=== PATIENT | male | born 1965 | race Caucasian/White ===

== ENCOUNTER 2017-11-05 20:11 | Emergency (ER) | payer OTHER ==
[~2017-11-05] VITALS: Ht 175.3 cm; Wt 80.8 kg
[~2017-11-05 20:11] MED LIST: ANTICRE6 PO; CNC/36 PO; FLUT50SP45 NAE; NASONEX INTNAS; OXYC-57 PO
[2017-11-05 20:14] VITALS: TEMP 36.3; Ht 175.3 cm; Wt 80.8 kg
[2017-11-05] MEDS ORDERED: MoRPHine SULFATE 4 MG/ML 1 ML CARP\\VIAL IV STA (20:34)
[2017-11-05] MEDS ORDERED: SODIUM CHLORIDE 0.9% 1000ML 1,000 ML IV STA (20:34)
[2017-11-05 21:12] LABS: BASO % 0.2 %; BASO ABS # 0.02 K/uL (0-0.2); EOS % 0.6 %; EOS ABS # 0.05 K/uL (0-0.5); HEMATOCRIT 44.5 % (42-52); HEMOGLOBIN 16.2 g/dL (14.0-18.0); IG# 0.01 K/uL (0.00-0.02); LYMPH % 12.5 %; LYMPH ABS # 1.01 K/uL (1.2-3.4); MEAN CELL VOLUME 88.8 fL (80-100); MEAN CORPUSCULAR HEMOGLOBIN 32.3 pg (25-34); MEAN CORPUSCULAR HGB CONC 36.4 g/dl (32-36); MEAN PLATELET VOLUME 8.9 fL (7.4-10.4); MONO % 5.8 %; MONO ABS # 0.47 K/uL (0.11-0.59); NEUT % 80.8 %; NEUT ABS # 6.53 K/uL (1.4-6.5); PLATELET COUNT 273 K/uL (130-400); RED CELL DISTRIBUTION WIDTH SD 42.3 fL (36.4-46.3); WHITE BLOOD COUNT 8.09 K/uL (4.8-10.8)
[2017-11-05 21:31] LABS: ALBUMIN 4.6 gm/dl (3.4-5.0); CALCIUM 8.9 mg/dl (8.5-10.1); CREATININE 1.11 mg/dl (0.60-1.40); POTASSIUM 3.7 mmol/L (3.5-5.1)
[2017-11-05 21:33] LABS: TOTAL PROTEIN 8.3 gm/dl (6.4-8.2)
--- NOTE | 2017-11-05 22:27 | EMERGENCY ROOM VISIT NOTE ---
History Report prepared by Aj: Ange Hernandez Under the Supervision of: Dr. Caden Carrera M.D. First contact with patient: 20:27 Chief Complaint: ABDOMINAL PAIN Stated Complaint: GALL STONE Nursing Triage Summary: Patient reports history of gal bladder issues and is to have gal bladder removed on wednesday. Patient reports abd pain that feels similar to past gal bladder issues. History of Present Illness The patient is a 51 year old male who presents to the Emergency Room with complaints of worsening abdominal pain starting this morning. The patient has a history of gallbladder issues. He had part of it removed 2 years ago. The surgeon was unable to remove the entire gallbladder because it was too inflamed. He is scheduled to have the rest of the gallbladder removed next week. He would like to have it removed today. He has been having flare ups of his gallbladder pain more frequently. The pain goes into his back. He has tried oxycodone to some relief. The pain worsens with eating. He had 1 slice of pizza yesterday evening at 2300. Today he had a cookie and creamy chicken soup, as well as chocolate/peanut butter. He denies any fever, cough, congestion, chest pain, or SOB. Source of History: patient Onset: this morning Position: abdomen Quality: other (gallbladder pain) Timing: worsening Modifying Factors (Worsening): eating Modifying Factors (Relieving): other (oxycodone) Associated Symptoms: + back pain, No fevers, No cough, No chest pain, No SOB Review of Systems See HPI for pertinent positives and negatives. A total of ten systems were reviewed and were otherwise negative. Past Medical & Surgical Medical Problems: (1) Cholecystitis, acute with cholelithiasis Family History Cancer Diabetes mellitus Heart disease Hypertension Kidney stones Social History Smoking Status: Never Smoker Alcohol Use: occasionally Drug Use: none Marital Status: Housing Status: lives with significant other Occupation Status: employed Current/Historical Medications Scheduled Methylphenidate Hcl (Concerta), 72 MG PO QAM Scheduled PRN Mometasone Furoate (Nasal) (Mometasone Furoate), 2 SPRAYS LETTY DIRECTED PRN for CONGESTION Allergies Coded Allergies: Penicillins (Verified Allergy, Unknown, unknown, 11/05/17) Succinylcholine (Verified Allergy, Unknown, SEE COMMENTS BELOW, 11/05/17) PT LISTS SUCCINYLCHOLINE ALLERGY DUE TO MOTHER HAS PSEUDOCHOLINESTERASE DEFICIENCY Physical Exam Vital Signs Date Time Temp Pulse Resp B/P (MAP) Pulse Ox O2 Delivery O2 Flow Rate FiO2 11/05/17 23:05 68 146/92 98 11/05/17 21:11 62 11/05/17 20:14 36.3 53 18 179/105 99 Room Air Physical Exam GENERAL: Awake, alert, well-appearing, in no distress HENT: Normocephalic, atraumatic. Oropharynx unremarkable. EYES: Normal conjunctiva. Sclera non-icteric. NECK: Supple. No nuchal rigidity. FROM. No JVD. RESPIRATORY: Clear to auscultation. CARDIAC: Regular rate, normal rhythm. Extremities warm and well perfused. Pulses equal. ABDOMEN: Soft, non-distended. No tenderness to palpation. No peritoneal signs. No rebound or guarding. No masses. RECTAL: Deferred. MUSCULOSKELETAL: Chest examination reveals no tenderness. The back is symmetrical on inspection without obvious abnormality. There is no CVA tenderness to palpation. No joint edema. LOWER EXTREMITIES: Calves are equal size bilaterally and non-tender. No edema. No discoloration. NEURO: Normal sensorium. No sensory or motor deficits noted. SKIN: No rash or jaundice noted. Medical Decision & Procedures ER Provider Diagnostic Interpretation: Radiology results as stated below per my review and radiologist interpretation: GALLBLADDER-ABD LIMITED HISTORY: 51 years-old Male RUQ pain, known gallstone acute right upper quadrant abdominal pain with history of cholelithiasis COMPARISON: Right upper quadrant ultrasound 06/22/2016 TECHNIQUE: Multiple real-time sonographic images of the abdominal right upper quadrant were obtained assessing grayscale appearance and color flow FINDINGS: Pancreas is obscured by bowel gas. Liver appears unremarkable without intrahepatic biliary ductal dilation or focal hepatic mass lesions identified. Gallstones are seen within the gallbladder neck. Gallbladder wall is mildly thickened, 5 mm. No pericholecystic fluid collections. Sonographic Garner sign was not reported. Mild dilation of the common bile duct, 1.1 cm. No definite stone of the common bile duct is identified. Right kidney demonstrates no hydronephrosis. IMPRESSION: 1. Cholelithiasis and mild gallbladder wall thickening without pericholecystic fluid or reported right upper quadrant tenderness. Correlate clinically to exclude developing acute cholecystitis. 2. Dilated common bile duct, 1.1 cm. 3. Pancreas is obscured by bowel gas. The above report was generated using voice recognition software. It may contain grammatical, syntax or spelling errors. Electronically signed by: Manan Billy M.D. 11/05/2017 10:24 PM Dictated Date/Time: 11/05/2017 10:22 PM Laboratory Results 11/05/17 20:54 Red Blood Count 5.01, Mean Corpuscular Volume 88.8, Mean Corpuscular Hemoglobin 32.3, Mean Corpuscular Hemoglobin Concent 36.4, Mean Platelet Volume 8.9, Neutrophils (%) (Auto) 80.8, Lymphocytes (%) (Auto) 12.5, Monocytes (%) (Auto) 5.8, Eosinophils (%) (Auto) 0.6, Basophils (%) (Auto) 0.2, Neutrophils # (Auto) 6.53, Lymphocytes # (Auto) 1.01, Monocytes # (Auto) 0.47, Eosinophils # (Auto) 0.05, Basophils # (Auto) 0.02 11/05/17 20:54 Test 11/05/17 20:54 White Blood Count 8.09 K/uL (4.8-10.8) Red Blood Count 5.01 M/uL (4.7-6.1) Hemoglobin 16.2 g/dL (14.0-18.0) Hematocrit 44.5 % (42-52) Mean Corpuscular Volume 88.8 fL (80-100) Mean Corpuscular Hemoglobin 32.3 pg (25-34) Mean Corpuscular Hemoglobin Concent 36.4 g/dl (32-36) Platelet Count 273 K/uL (130-400) Mean Platelet Volume 8.9 fL (7.4-10.4) Neutrophils (%) (Auto) 80.8 % Lymphocytes (%) (Auto) 12.5 % Monocytes (%) (Auto) 5.8 % Eosinophils (%) (Auto) 0.6 % Basophils (%) (Auto) 0.2 % Neutrophils # (Auto) 6.53 K/uL (1.4-6.5) Lymphocytes # (Auto) 1.01 K/uL (1.2-3.4) Monocytes # (Auto) 0.47 K/uL (0.11-0.59) Eosinophils # (Auto) 0.05 K/uL (0-0.5) Basophils # (Auto) 0.02 K/uL (0-0.2) RDW Standard Deviation 42.3 fL (36.4-46.3) RDW Coefficient of Variation 13.0 % (11.5-14.5) Immature Granulocyte % (Auto) 0.1 % Immature Granulocyte # (Auto) 0.01 K/uL (0.00-0.02) Anion Gap 4.0 mmol/L (3-11) Est Creatinine Clear Calc Drug Dose 78.8 ml/min Estimated GFR () 88.6 Estimated GFR (Non- 76.5 BUN/Creatinine Ratio 14.8 (10-20) Calcium Level 8.9 mg/dl (8.5-10.1) Total Bilirubin 0.9 mg/dl (0.2-1) Direct Bilirubin 0.2 mg/dl (0-0.2) Aspartate Amino Transf (AST/SGOT) 33 U/L (15-37) Alanine Aminotransferase (ALT/SGPT) 55 U/L (12-78) Alkaline Phosphatase 74 U/L (45-117) Total Protein 8.3 gm/dl (6.4-8.2) Albumin 4.6 gm/dl (3.4-5.0) Lipase 87 U/L (73-393) Laboratory results reviewed by me Medications Administered Medications (Trade) Dose Ordered Sig/Ania Route Start Time Stop Time Status Last Admin Dose Admin Sodium Chloride 1,000 ml @ 999 mls/hr Q1H1M STAT IV 11/05/17 20:34 11/05/17 21:34 DC 11/05/17 20:34 999 MLS/HR Morphine Sulfate (MoRPHine SULFATE INJ) 4 mg NOW STAT IV 11/05/17 20:34 11/05/17 20:44 DC 11/05/17 21:05 4 MG ED Course 2032: The patient was evaluated in room A4B. A complete history and physical exam was performed. Medical Decision I reviewed the patient's past medical history, medications, and the nursing notes as described above. Differential diagnosis: Etiologies such as appendicitis, diverticulitis, PUD, biliary pathology, UTI, pancreatitis, obstruction, mesenteric ischemia, aortic pathology, infections, inflammatory bowel disease, renal colic, as well as others were entertained. The patient is a 51-year-old woman with past medical history of known gallstone who presents to the emergency department with worsening right upper quadrant/ back pain in the setting of dietary indiscretions per HPI. On arrival the patient is well-appearing in NAD, AFVSS. Abd is benign without ttp and Negative garner's sign. WBC and LFTS wnl without evidence of biliary obstruction. RUQ US with mild nonspecific wall thickening and otherwise negative for obstruction or cholecystitis. Patient feeling improved after IVF and morphine. I explained the patient that his pain should continue to improve given that his exacerbation was likely due to her dietary indiscretion. Moreover, given his w/ u was reassuring without objective evidence to suggest need for emergent surgery , it is appropriate to monitor his symptoms with strict diet and to return if worse. Already has surgery scheduled with , Dr. Rosario, on Wednesday. Patient advised to attempt Pepcid to see if sx improve, if possible superimposed gastritis component. Findings and plan for follow-up reviewed with patient. Patient agreeable and d/c'd per discharge instructions. Medication Reconcilliation Current Medication List: was personally reviewed by me Blood Pressure Screening Patient's blood pressure: Elevated blood pressure Blood pressure disposition: Elevated BP felt to be situational Impression Primary Impression: Cholelithiasis Additional Impression: Biliary colic Scribe Attestation The scribe's documentation has been prepared under my direction and personally reviewed by me in its entirety. I confirm that the note above accurately reflects all work, treatment, procedures, and medical decision making performed by me. Departure Information Dispostion Home / Self-Care Referrals Yuriy Peña M.D.(STEPHIE) (PCP) Patient Instructions ED Gallstone W Biliary Colic, My [facility] Additional Instructions Please follow up with your surgeon, Dr. Rosario, as scheduled on Wednesday for your surgery. Your symptoms are likely due to your known gallstone in the setting of your recent fat intake. Otherwise, your exam, lab results, and ultrasound did not show signs of an emergent condition at this time. Refrain from fatty foods. Drink plenty of fluids to ensure hydration. Return to the emergency department for worsening symptoms as described in the accompanying instructions. Problem Qualifiers
[2017-11-05] MEDS ORDERED: MOME6000 NAE (22:58)
[2017-11-05 23:05] VITALS: BP 146/92; PULSE 68; O2SAT 98
== END 2017-11-05 23:06 | disposition home or self-care (01) ==
LOC: C.EDA 21:04
DX: K80.20 Calculus of gallbladder without cholecystitis without obstruction (principal); K80.50 Calculus of bile duct without cholangitis or cholecystitis without obstruction; R10.11 Right upper quadrant pain

== ENCOUNTER 2017-11-10 07:38 | Day surgery (SDC) | payer OTHER ==
[2017-08-11 10:40] VITALS: BMI 27.0
[2017-11-05 10:15] VITALS: BMI 27.0
[~2017-11-10] VITALS: Ht 175.3 cm; Wt 84.1 kg
[~2017-11-10 07:38] MED LIST changes: -ANTICRE6 PO; +CLINDAMYCIN 600 MG/54 ML D5W IV SCH; -FLUT50SP45 NAE; +LACTATED RINGER'S 1000ML 1,000 ML IV SCH; +MOME6000 NAE; -NASONEX INTNAS; -OXYC-57 PO
[2017-11-10 08:05] VITALS: BP 141/86; PULSE 59; TEMP 36.5; O2SAT 96; Ht 175.3 cm; Wt 84.1 kg
[2017-11-10] MEDS ORDERED: FENTANYL CITRATE INJ 50 MCG/1 ML 2 ML VIAL ONE ×2 (09:34→12:29)
[2017-11-10] MEDS ORDERED: MIDAZOLAM HCL 1 MG/ML 2ML VIAL ONE (09:35)
[2017-11-10] MEDS ORDERED: LIDOCAINE HCL 2% 2 ML VIAL (20MG/ML) ONE (09:38)
[2017-11-10] MEDS ORDERED: ROCURONIUM BROMIDE 10 MG/ML 5 ML VIAL ONE (09:38)
[2017-11-10] MEDS ORDERED: PROPOFOL IV EMULSION 10 MG/ML 20 ML VIAL ONE (09:39)
--- NOTE | 2017-11-10 10:11 | History & Physical Bridge Note ---
H&P Re-Evaluation Bridge Note: I have examined the patient, reviewed the History & Physical and in the interval since the performance of the History & Physical I have noted the following changes of clinical significance: No changes noted
[2017-11-10] MEDS ORDERED: LIDOCAINE HCL 1% 20 ML VIAL ONE (11:02)
[2017-11-10] MEDS ORDERED: BACITRACIN OINT 15 GM TUBE ONE (11:03)
[2017-11-10] MEDS ORDERED: BUPIVACAINE 0.5 % 5 MG/1 ML MPF 30ML VIAL ONE (11:03)
[2017-11-10] MEDS ORDERED: ONDANSETRON INJ 2 MG/ML 2 ML VIAL ONE ×2 (11:46→12:09)
[2017-11-10] MEDS ORDERED: EpHEDrine SULFATE 50MG/5ML SYR ONE (12:09)
[2017-11-10] MEDS ORDERED: ATROPINE SULFATE 0.1 MG/ML 5ML SYR IV PRN (12:15)
[2017-11-10] MEDS ORDERED: KETOROLAC TROMETHAMINE 30 MG/ML VIAL IV. PRN (12:15)
[2017-11-10] MEDS ORDERED: ONDANSETRON INJ 2 MG/ML 2 ML VIAL IV PRN ×3 (12:15→14:15)
--- NOTE | 2017-11-10 13:01 | [facility] Post Operative Brief Note ---
Immediate Operative Summary Operative Date November 10, 2017. Pre-Operative Diagnosis Cholecystitis with Gallstones Post-Operative Diagnosis Cholecystitis with Gallstones Procedure(s) Performed Laparoscopic Cholecystectomy Surgeon Dr Rosario Steward/[employer] Surgeon(s) Romelia Green PA-C Estimated Blood Loss 20CC Findings Consistent with Post-Op Diagnosis Fluids (cc crystalloids) 1200ml Specimens A: Gallbladder and contents Drains YAO x1 Anesthesia Type General Complication(s) none Disposition Accompanied Pt To Recover: yes Disposition: Recovery Room / PACU
[2017-11-10] MEDS ORDERED: KETOROLAC TROMETHAMINE 30 MG/ML VIAL ONE (13:06)
[2017-11-10] MEDS: FENTANYL CITRATE INJ 50 MCG/1 ML 2 ML VIAL IV PRN ×2 (13:39→13:44)
[2017-11-10] MEDS ORDERED: OXYC-57 PO (13:50)
--- NOTE | 2017-11-10 13:54 | Discharge Instructions ---
Discharge Instructions Date of Service November 10, 2017. Admission Reason for Admission: Right Upper Quadrant Abdominal Pain Discharge Discharge Diagnosis / Problem: same Discharge Goals Goal(s): Decrease discomfort, Improve function Activity Recommendations Activity Limitations: per Instructions/Follow-up section No heavy lifting over 20 pounds for 2-3 weeks No strenuous activity until cleared by surgeon No submerging incisions underwater for 2 weeks (no bathing, swimming, or hot tubs) No driving while taking narcotic pain medication or until you are pain free . Instructions / Follow-Up Instructions / Follow-Up You may shower in 4 days, sponge bath and wash hair in meantime. Try to keep dressings clean and dry. After 4 days, you may remove outer dressings and shower. Leave Steri-Strips on incisions for 7 days and then remove. They may fall off on their own that is okay. Walking and light activity is encouraged. He will be given prescription for narcotic pain medication. Please take as directed. This medication may cause drowsiness and constipation. To combat constipation: -Drink plenty of fluids -May take [id number] stool softener such as Colace daily -May take gentle laxative and prune juice if needed You will be sent home with surgical drain. Please record how much is coming out of the drain periodically throughout the day. Call surgical office at [phone] to make an appointment this Wednesday morning around 9:00 to evaluate drain and possible removal. He should then have a follow-up in the surgical office in about 1-2 weeks. Please again called the office number above to make this follow-up appointment or this can be made Wednesday when you are seen for your drain. Current Hospital Diet Patient's current hospital diet: Discharge Diet Recommended Diet: Regular Diet Procedures Procedures Performed: Laparoscopic Cholecystectomy Pending Studies Studies pending at discharge: yes List of pending studies: Gallbladder pathology. Will be reviewed at follow up visit Medical Emergencies . Who to Call and When: Medical Emergencies: If at any time you feel your situation is an emergency, please call 911 immediately. . Non-Emergent Contact Non-Emergency issues call your: Primary Care Provider, Surgeon Call Non-Emergent contact if: you have a fever, temperature is above 101, your pain is not controlled, your pain is worsening, your pain is unusual for you, wound has increased drainage, wound has increased redness, wound has increased pain . "Provider Documentation" section prepared by Romelia Green. . [place] Drug Monitoring [place] Search Results: patient reviewed within database, no issues identified
[2017-11-10] MEDS ORDERED: ACETAMINOPHEN 325 MG TAB PO PRN (14:00)
[2017-11-10] MEDS ORDERED: MoRPHine SULFATE 4 MG/ML 1 ML CARP\\VIAL IV PRN ×2 (14:00→14:15)
[2017-11-10] MEDS ORDERED: MoRPHine SULFATE 2 MG/ML CARP IV PRN ×2 (14:00)
[2017-11-10] MEDS ORDERED: OXYCODONE/ACETAMINOPHEN 5-325 TAB PO PRN ×3 (14:00→14:15)
[2017-11-10] MEDS ORDERED: SODIUM CHLORIDE 0.9% 1000ML 1,000 ML IV SCH (14:01)
[2017-11-10 14:12] VITALS: BP 133/76; PULSE 66; TEMP 36.5; O2SAT 100
[2017-11-10] MEDS ORDERED: IBUPROFEN 600 MG TAB PO PRN (14:15)
[2017-11-10 14:45] VITALS: BP 148/84; PULSE 62; TEMP 36.4; O2SAT 100
[2017-11-10 15:15] VITALS: BP 135/81; PULSE 57; TEMP 36.5; O2SAT 96
--- NOTE | 2017-11-10 16:00 | Anesthesiology Progress Note ---
Anesthesia Post Op Note Date & Time November 10, 2017 at 16:00 Vital Signs Pain Intensity: 2 Vital Signs Past 12 Hours Date Time Temp Pulse Resp B/P (MAP) Pulse Ox O2 Delivery O2 Flow Rate FiO2 11/10/17 14:00 36.3 51 20 112/78 97 Room Air 11/10/17 13:50 66 16 119/73 100 Room Air 11/10/17 13:40 48 14 139/89 100 Oxymask 10 11/10/17 13:30 51 14 131/86 100 Oxymask 10 11/10/17 13:21 36.3 67 14 141/94 100 Oxymask 10 11/10/17 08:05 36.5 59 16 141/86 (104) 96 Room Air Notes Mental Status: alert / awake / arousable, participated in evaluation Pt Amnestic to Procedure: Yes Nausea / Vomiting: adequately controlled Pain: adequately controlled Airway Patency, RR, SpO2: stable & adequate BP & HR: stable & adequate Hydration State: stable & adequate Anesthetic Complications: no major complications apparent
--- NOTE | 2017-11-11 02:08 | OPERATIVE REPORT ---
DATE OF OPERATION: 11/10/2017 PREOPERATIVE DIAGNOSIS: Post status laparoscopic subtotal cholecystectomy, cholecystitis, cholelithiasis. POSTOPERATIVE DIAGNOSIS: Post status laparoscopic subtotal cholecystectomy, cholecystitis, cholelithiasis. OPERATION: Laparoscopic cholecystectomy. SURGEON: Henrry Rosario MD [employer]ICE OFFICER: Romelia Green PA-C ANESTHESIA: General. ESTIMATED BLOOD LOSS: About 20 mL FINDINGS: Chronic cholecystitis with cholelithiasis. COMPLICATIONS: None. INDICATIONS FOR THE PROCEDURE: This is a 52-year-old gentleman who had laparoscopic subtotal cholecystectomy for acute cholecystitis 5 months ago; however, after the procedure, the patient doing fine until the last couple weeks the patient developed right upper quadrant pain. The patient had ultrasound which showed remaining gallstone in the gallbladder and cholecystitis. The patient will be required to do laparoscopic cholecystectomy, possible open, possible cholangiogram. I did talk to the patient about the benefit and risk, alternate procedure. I indicated the risks may include but not limited such as bleeding, infection, injury to common bile duct, injury to bowel, may need ERCP. The patient understands. He signed informed consent and I answered all questions. DETAILS OF PROCEDURE: We brought the patient to the OR, put the patient on the supine position. The patient received SCD on bilateral legs to prevent DVT. Also, the patient received 600 mg of clindamycin IV for prophylactic antibiotic. The patient received general anesthesia without difficulty. The abdomen was properly draped in routine sterile fashion. After time out, injected the local anesthesia just above umbilical then used the same all the incision just above umbilical, opened fascia, opened peritoneum under direct vision put a Annamarie trocar in, connected CO2 to create pneumoperitoneum. Flow rate is 6 L/min. Pressure not more than 14 mmHg. Once we got a nice pneumoperitoneum, we put the camera in, looked around the abdomen, showed normal finding on the stomach, small bowel, large bowel, liver; however, there are some chronic inflammation around the gallbladder, and at this moment, we put another two 5 mm trocar on the right upper quadrant and put another 11 trocar on the epigastrium. Once all trocars in, we used a grasper to hold the liver up and remainder of gallbladder is chronic cholecystitis. I used the Bovie to take it down around the gallbladder and cystic duct was identified, mobilized, and also there are large stone near the cystic duct neck. Removed the stone, go back to the gallbladder cavity. Once we identified the cystic duct and put two 10 mm metal clips on the proximal cystic duct, one on the distal cystic duct. I used a scissor to transection the cystic duct. Rechecked and no active bleeding, no leak and the cystic artery was identified and mobilized. I put two 5 mm metal clips on the proximal cystic arterial around the distal cystic artery, used a scissor to transection the cystic artery. I used the Bovie to take down gallbladder without difficulty; however, after the procedure there was some oozing on the liver side. We decided to put a YAO drainage 10 mm. Then we rechecked and no active bleeding. No bile leak from the liver bed. Then we removed out gallbladder through the catch bag, then we reinserted Annamarie trocar and connected CO2 to create pneumoperitoneum, again checked abdomen, liver bed, no bile leak, and no active bleeding from the liver bed. Then we removed all trocar under direct vision. No active bleeding from trocar site. Pneumoperitoneum was released and we closed the umbilical incision, fascial layer, used #1 Vicryl [id number] x2, closed subcutaneous layer by using 2-0 Vicryl, closed skin by using 4-0 Vicryl, closed the epigastrium incision area. I used a #1 Vicryl, closed the fascia in [id number] x2, closed subcutaneous layer by using 2-0 Vicryl, closed skin by using 4-0 Vicryl. I closed another two 5 mm trocar site skin only by using 4-0 Vicryl. We put the dressing on. The patient tolerated the procedure well. All the instrument, needle, and sponge count were correct x2 at the end of the case. The patient transferred to recovery room in stable condition. The specimen sent to pathologist. I attest to the content of the Intraoperative Record and any orders documented therein. Any exceptions are noted below. SAGE
[2017-11-11] MEDS ORDERED: CLINDAMYCIN 600 MG/54 ML D5W IV ONE (06:00)
== END 2017-11-10 15:45 | disposition home or self-care (01) ==
LOC: C.ACU 07:38
PROVIDERS: ATTEND Surgery
DX: K80.10 Calculus of gallbladder with chronic cholecystitis without obstruction (principal); F41.9 Anxiety disorder, unspecified; F98.8 Other specified behavioral and emotional disorders with onset usually occurring in childhood and adolescence; Z88.0 Allergy status to penicillin

== ENCOUNTER 2024-11-26 18:49 | Inpatient (IN) ==
--- NOTE | 2024-11-26 19:06 | Emergency Department Note ---
Impression & Plan Hypertensive urgency ADMIT ED Provider Note HPI: History obtained from patient. The patient is a 59-year-old gentleman who presents the ED today with multiple issues. Patient states throughout the day today he has been feeling somewhat lightheaded. Patient states when he bends over he feels as if he is going to "pass out". Patient states he feels like his heart has been "pounding". Patient denies any chest pain or shortness of breath, he denies any headache but states he does feel a head "pressure". On arrival here to the ED the patient is hypertensive at 197/121, his vital signs are otherwise within normal limits. Patient does not have any focal deficits on arrival. ROS: - Per HPI Differential Diagnosis: Hypertensive emergency, hypertensive urgency, migraine headache, arrhythmia, intracranial hemorrhage to include subarachnoid hemorrhage, stroke, amongst other potential pathologies. *Outpatient medications and allergy history reviewed. PE: General: Alert HEENT: Normocephalic, trachea midline Eyes: Extraocular eye movement is intact, no scleral erythema Pulmonary: Clear to auscultation bilaterally, no wheezing Cardio: Regular rate and rhythm GI: Abdomen is soft to palpation : No suprapubic tenderness MSK: No evidence of trauma or malformation of the extremities, no edema Skin: No evidence of rash Neuro: Alert, no focal deficits, symmetrical facial movements are appreciated Psychiatric: Cooperative INDEPENDENT INTERPRETATIONS: production troubleshooter: (As interpreted by myself): - An order was placed for continuous cardiac monitoring - Patient was noted to be in sinus rhythm with a rate of 100 EKG: (As interpreted by myself): Rate: 94 Rhythm: Normal sinus rhythm Intervals: Within normal limits ST changes: No ST elevation Time: 1902 Chest x-ray: (As interpreted by myself): No acute disease Interventions provided in ED: - IV labetalol, IV hydralazine, IV morphine, IV Zofran Medical Decision Making: IV was established and lab work obtained, patient was placed on education specialist. Lab work shows no leukocytosis, hemoglobin is normal, platelet count is normal, CMP does not show any evidence of any critical findings. AST is mildly elevated as is ALT. Troponin is negative x 1. EKG per my interpretation shows normal sinus rhythm without any acute ischemic changes or arrhythmia. TSH is within normal limits, magnesium is also within normal limits. CT imaging of the head was obtained given the patient's complaint of head "pressure". This does not show any evidence of any acute intracranial abnormality. Despite IV labetalol and IV hydralazine on my reassessment the patient's pressure remains elevated and he states he still has pressure in his head. At this point I do think the patient should be admitted to the hospital for hypertensive urgency with headache. Patient was ordered IV morphine and IV Zofran, this did improve his headache. I did order an nicardipine drip and I did discuss the patient's presentation with the on-call hospitalist, Dr. Blair. She did accept the patient for further management and inpatient care. Consultants/Discussions held with other healthcare providers: - Hospitalist, Dr. Blair Disposition discussion held by myself with: - Patient Diagnosis: 1. Hypertensive urgency, acute 2. Headache, acute 3. Presyncope, transient 4. Transaminitis, acute, mild, nonspecific Disposition: Admission Aj Haji DO Emergency Medicine Past Med/Surg History Problem List (Updated 11/26/24 @ 23:15 by Aj Haji DO) BPH (benign prostatic hyperplasia) Transaminitis Hypokalemia Hypertensive urgency (Acute) Cholecystitis, acute with cholelithiasis Social History Smoking Status: Never smoker Preferred Language: Cymro Feels Safe at Home: Yes Allergies Allergies Allergy/AdvReac Type Severity Reaction Status Date / Time Penicillins Allergy Unknown unknown Verified 11/10/17 07:54 succinylcholine Allergy Unknown SEE Verified 11/10/17 07:54 COMMENTS BELOW Home Meds Home Medications Medication Instructions Recorded Confirmed cetirizine 10 mg tablet (Zyrtec) 10 mg PO DAILY PRN Allergy Symptoms 11/26/24 11/26/24 finasteride 5 mg tablet 5 mg PO DAILY 11/26/24 11/26/24 phentermine 37.5 mg tablet 37.5 mg PO DAILY 11/26/24 11/26/24 tamsulosin 0.4 mg capsule 0.4 mg PO BID 11/26/24 11/26/24 Results & Data (ED) Vital Signs Vital Signs - 24 hr 11/26/24 18:57 11/26/24 19:02 11/26/24 19:10 Temperature 36.6 C Temperature Source Temporal Artery Scan Pulse Rate 101 H 94 H Pulse Rate [Apical] Pulse Rhythm Regular Pulse Strength Normal Respiratory Rate 17 Respiratory Effort / Characteristics Non-Labored Spontaneous Respiratory Depth Normal Blood Pressure 197/121 H Blood Pressure [Right Arm] Blood Pressure Mean 146 Blood Pressure Mean [Right Arm] Blood Pressure Position Sitting Blood Pressure Position [Right Arm] Pulse Oximetry 96 Oxygen Delivery Method Room Air Room Air Sepsis Recent Fever Within 48 Hours No Sepsis New/Unexplained Change in Mental Status N/A Sepsis Action Taken by Nursing No Action Required 11/26/24 19:10 11/26/24 19:14 11/26/24 19:29 Temperature Temperature Source Pulse Rate 88 79 Pulse Rate [Apical] 79 Pulse Rhythm Pulse Strength Respiratory Rate 16 Respiratory Effort / Characteristics Non-Labored Spontaneous Respiratory Depth Blood Pressure 220/146 H 197/126 H Blood Pressure [Right Arm] 220/146 H Blood Pressure Mean Blood Pressure Mean [Right Arm] 170 Blood Pressure Position Blood Pressure Position [Right Arm] Pulse Oximetry 96 Oxygen Delivery Method Room Air Sepsis Recent Fever Within 48 Hours Sepsis New/Unexplained Change in Mental Status Sepsis Action Taken by Nursing 11/26/24 19:58 11/26/24 21:00 11/26/24 22:59 Temperature Temperature Source Pulse Rate Pulse Rate [Apical] 87 90 102 H Pulse Rhythm Pulse Strength Respiratory Rate 16 22 Respiratory Effort / Characteristics Non-Labored Spontaneous Non-Labored Spontaneous Respiratory Depth Blood Pressure Blood Pressure [Right Arm] 184/123 H 187/115 H 200/121 H Blood Pressure Mean Blood Pressure Mean [Right Arm] 143 139 147 Blood Pressure Position Blood Pressure Position [Right Arm] Lying Pulse Oximetry 96 97 Oxygen Delivery Method Room Air Room Air Sepsis Recent Fever Within 48 Hours Sepsis New/Unexplained Change in Mental Status Sepsis Action Taken by Nursing Laboratory Data 11/26/24 19:17 11/26/24 19:17 Lab Results 11/26/24 Range/Units 19:17 WBC 8.61 (4.8-10.8) K/ul RBC 5.20 (4.70-6.10) M/uL Hgb 17.2 (14.0-18.0) g/dl Hct 48.3 (42.0-52.0) % MCV 92.9 (80.0-100.0) fL MCH 33.1 (25.0-34.0) pg MCHC 35.6 (32.0-36.0) g/dL RDW Std Deviation 41.2 (36.4-46.3) fL RDW Coeff of Nathalia 12.0 (11.5-14.5) % Plt Count 221 (130-400) K/uL MPV 9.5 (9.4-12.4) fL Immature Gran % (Auto) 0.5 % Neut % (Auto) 65.7 % Lymph % (Auto) 22.6 % Trigg % (Auto) 7.7 % Eos % (Auto) 2.6 % Baso % (Auto) 0.9 % Neut # (Auto) 5.66 (1.40-6.50) K/uL Lymph # (Auto) 1.95 (1.20-3.40) K/uL Trigg # (Auto) 0.66 H (0.11-0.59) K/uL Eos # (Auto) 0.22 (0.00-0.50) K/uL Baso # (Auto) 0.08 (0.00-0.20) K/uL Immature Gran # (Auto) 0.04 (0.01-0.20) K/uL PT 10.9 (9.0-12.0) Seconds INR 1.0 (0.9-1.1) Sodium 140 (136-145) mmol/L Potassium 3.3 L (3.5-5.1) mmol/L Chloride 103 (98-107) mmol/L Carbon Dioxide 27 (21-32) mmol/L Anion Gap 10 (3-11) BUN 12 (6-23) mg/dl Creatinine 1.15 (0.6-1.4) mg/dl Est Cr Clr Drug Dosing 79.2 ml/min eGFR 73.31 BUN/Creatinine Ratio 10.4 (10-20) Glucose 105 H (70-99(Fasting)) mg/dl Calcium 9.2 (8.6-10.3) mg/dl Magnesium 2.2 (1.7-2.4) mg/dl Total Bilirubin 0.6 (0.2-1.0) mg/dl AST 43 H (13-39) U/L ALT 79 H (7-52) U/L Alkaline Phosphatase 83 (34-104) U/L Troponin I High Sens 5.4 (0-20) pg/ml Total Protein 8.0 (6.0-8.3) gm/dl Albumin 4.1 (3.4-5.0) gm/dl Globulin 3.9 (2.5-4.0) gm/dl Albumin/Globulin Ratio 1.1 (0.9-2) TSH 1.098 (0.300-4.500) uIu/ml Administered Medications Nicardipine HCl 25 mg/ Sodium (Chloride) 250 mls @ 50 mls/hr IV .Q5H [facility]; Protocol Stop: 12/26/24 21:44 Last Admin: 11/26/24 22:27 Dose: Not Given Documented By: SULY Discontinued Medications Clonidine HCl (Clonidine Hcl 0.1 Mg Tab) 0.1 mg PO NOW STA Stop: 11/26/24 22:00 Last Admin: 11/26/24 22:58 Dose: 0.1 mg Documented By: SULY Hydralazine HCl (Hydralazine Hcl 20 Mg/Ml Vial) 10 mg IV NOW STA Stop: 11/26/24 19:50 Last Admin: 11/26/24 19:58 Dose: 10 mg Documented By: SULY Sodium Chloride (Nss) 500 mls @ 999 mls/hr IV .Q31M ONE Stop: 11/26/24 19:31 Last Infusion: 11/26/24 20:06 Dose: Infused Documented By: Admin: 11/26/24 19:10 Dose: 999 mls/hr Documented By: IDD Labetalol HCl (Labetalol Hcl Iv 5 Mg/Ml 20ml) Confirm Administered Dose 5 mg IV .STK-MED ONE Stop: 11/26/24 19:06 Last Admin: 11/26/24 19:14 Dose: 5 mg Documented By: SULY Lorazepam (Lorazepam 2 Mg/1 Ml Vial) 0.5 mg IV NOW STA Stop: 11/26/24 22:27 Last Admin: 11/26/24 22:56 Dose: 0.5 mg Documented By: SULY Miscellaneous (Stat Iv Infusion Titration Per Protocol) 1 each N/A NOW STA Stop: 11/26/24 21:44 Last Admin: 11/26/24 22:41 Dose: Not Given Documented By: SULY Morphine Sulfate (Morphine Sulfate 4 Mg/Ml 1 Ml Carp\\Vial) 4 mg IV NOW STA Stop: 11/26/24 21:45 Last Admin: 11/26/24 21:55 Dose: 4 mg Documented By: SULY Ondansetron HCl (Ondansetron Inj 2 Mg/Ml 2 Ml Vial) 4 mg IV NOW STA Stop: 11/26/24 21:45 Last Admin: 11/26/24 21:54 Dose: 4 mg Documented By: SULY Potassium Chloride (Potassium Chloride Crtab 20 Meq Tabcr) 40 meq PO NOW STA Stop: 11/26/24 22:41 Last Admin: 11/26/24 22:57 Dose: 40 meq Documented By: SULY Imaging Data Radiologist's Impression: Chest X-Ray 11/26/24 19:01 EXAM: XR chest 1V portable CLINICAL HISTORY: Dysrhythmia TECHNIQUE: An X-ray image of the chest is obtained in PA projection. COMPARISON: 06/22/2016 CT was reviewed. FINDINGS: Pulmonary Parenchyma: Mild prominent bronchovascular markings are likely due to the expiratory exposure No evidence of consolidation, collapse, or focal opacities. No pulmonary nodules are identified. No evidence of pleural effusion or pleural thickening. Heart and Mediastinum: Heart size and shape are normal. No mediastinal widening or masses. No hilar or mediastinal lymphadenopathy. Bony Thorax: Bony thorax appears intact without fractures or deformities. Soft Tissues: Soft tissues overlying the chest wall are unremarkable. IMPRESSION: 1. No consolidation, cavitation and pleural effusion. Unchanged 2. Normal chest X-ray. No acute cardiopulmonary abnormalities are identified. Electronically signed by Yonatan Garcia 11-26-2024 9:[address] 11/26/24 19:17 Exam(s): CT HEAD Without Contrast EXAM: CT Head Without Intravenous Contrast CLINICAL HISTORY: Reason for exam: HEAD, HTN. TECHNIQUE: Axial computed tomography images of the head/brain without intravenous contrast. CTDI is 36.31 mGy and DLP is 547.75 mGy-cm. Automated exposure control was utilized for the study. A dose lowering technique was utilized adhering to the principles of ALARA. COMPARISON: No relevant prior studies available. FINDINGS: Brain: Ventricles and sulci are normal in size and configuration for age. No acute stroke. No acute hemorrhage. No abnormal extra-axial fluid collection. Ventricles: No hydrocephalus. No midline shift. Bones/joints: Unremarkable. No acute fracture. Soft tissues: Unremarkable. Sinuses: Unremarkable as visualized. No acute sinusitis. IMPRESSION: No acute abnormality. Electronically signed by: Yonny Godoy M.D. 11/26/24 21:20 PM Discharge Plan Visit Data Chief Complaint: Cardiac Assessment Stated Complaint: LIGHT HEADED, HEART POUNDING ED Provider: Aj Haji Discharge Problem: Hypertensive urgency Patient Disposition: Admitted As Inpatient Condition: Fair Forms Stand Alone Forms: [facility] [employer] Prescriptions Prescriptions: No Action cetirizine [Zyrtec] 10 mg Tablet 10 mg PO DAILY PRN (Reason: Allergy Symptoms) phentermine 37.5 mg tablet 37.5 mg PO DAILY tamsulosin 0.4 mg capsule 0.4 mg PO BID finasteride 5 mg tablet 5 mg PO DAILY Referrals Referrals: PCP,NO [Physician] -
[2024-11-26 19:30] LABS: Basophils # (auto) 0.08 K/uL (0.00-0.20); Basophils % (auto) 0.9 %; Eosinophils # (auto) 0.22 K/uL (0.00-0.50); Eosinophils % (auto) 2.6 %; Hematocrit (blood only) 48.3 % (42.0-52.0); Hemoglobin 17.2 g/dl (14.0-18.0); Immature Granulocytes # (auto) 0.04 K/uL (0.01-0.20); Immature Granulocytes % (auto) 0.5 %; Lymphocytes # (auto) 1.95 K/uL (1.20-3.40); Lymphocytes % (auto) 22.6 %; Mean Corpuscular Hemoglobin 33.1 pg (25.0-34.0); Mean Corpuscular Hgb Conc 35.6 g/dL (32.0-36.0); Mean Corpuscular Volume 92.9 fL (80.0-100.0); Mean Platelet Volume 9.5 fL (9.4-12.4); Monocytes # (auto) 0.66 K/uL (0.11-0.59); Monocytes % (auto) 7.7 %; Neutrophils # (auto) 5.66 K/uL (1.40-6.50); Neutrophils % (auto) 65.7 %; Platelet Count 221 K/uL (130-400); RDW Standard Deviation 41.2 fL (36.4-46.3); White Blood Count 8.61 K/ul (4.8-10.8)
[2024-11-26 19:47] LABS: Albumin Globulin Ratio 1.1 (0.9-2); Albumin Level 4.1 gm/dl (3.4-5.0); BUN Creatinine Ratio 10.4 (10-20); Bilirubin,Total 0.6 mg/dl (0.2-1.0); Calcium 9.2 mg/dl (8.6-10.3); Creatinine Clr Calc Pharmacy 79.2 ml/min; Globulin 3.9 gm/dl (2.5-4.0); Magnesium 2.2 mg/dl (1.7-2.4); Potassium 3.3 mmol/L (3.5-5.1)
[2024-11-26 19:53] LABS: Troponin I High Sensitivity 5.4 pg/ml (0-20)
[2024-11-26 20:02] LABS: Thyroid Stimulating Hormone 1.098 uIu/ml (0.300-4.500)
[2024-11-26 20:04] LABS: Prothrombin Time 10.9 Seconds (9.0-12.0)
--- NOTE | 2024-11-26 21:21 | CT Scan Report ---
Exam(s): CT HEAD Without Contrast EXAM: CT Head Without Intravenous Contrast CLINICAL HISTORY: Reason for exam: HEAD, HTN. TECHNIQUE: Axial computed tomography images of the head/brain without intravenous contrast. CTDI is 36.31 mGy and DLP is 547.75 mGy-cm. Automated exposure control was utilized for the study. A dose lowering technique was utilized adhering to the principles of ALARA. COMPARISON: No relevant prior studies available. FINDINGS: Brain: Ventricles and sulci are normal in size and configuration for age. No acute stroke. No acute hemorrhage. No abnormal extra-axial fluid collection. Ventricles: No hydrocephalus. No midline shift. Bones/joints: Unremarkable. No acute fracture. Soft tissues: Unremarkable. Sinuses: Unremarkable as visualized. No acute sinusitis. IMPRESSION: No acute abnormality. Electronically signed by: Yonny Godoy M.D. 11/26/24 21:20 PM
--- NOTE | 2024-11-26 21:29 | XRay Report ---
EXAM: XR chest 1V portable CLINICAL HISTORY: Dysrhythmia TECHNIQUE: An X-ray image of the chest is obtained in PA projection. COMPARISON: 06/22/2016 CT was reviewed. FINDINGS: Pulmonary Parenchyma: Mild prominent bronchovascular markings are likely due to the expiratory exposure No evidence of consolidation, collapse, or focal opacities. No pulmonary nodules are identified. No evidence of pleural effusion or pleural thickening. Heart and Mediastinum: Heart size and shape are normal. No mediastinal widening or masses. No hilar or mediastinal lymphadenopathy. Bony Thorax: Bony thorax appears intact without fractures or deformities. Soft Tissues: Soft tissues overlying the chest wall are unremarkable. IMPRESSION: 1. No consolidation, cavitation and pleural effusion. Unchanged 2. Normal chest X-ray. No acute cardiopulmonary abnormalities are identified. Electronically signed by Yonatan Garcia 11-26-2024 9:28 PM
--- NOTE | 2024-11-26 21:56 | History & Physical Report ---
Date of Service November 26, 2024 Assessment & Plan (1) Hypertensive urgency: (2) Hypokalemia: (3) Transaminitis: (4) BPH (benign prostatic hyperplasia): Plan Patient is a 59-year-old male with past medical history of ADHD and BPH who presented due to persistent hypertension and head pressure. Patient's pressure noted to be as high as 220/146 in ED, decreased to 187/115 after labetalol 5 Mg IV and hydralazine 10 Mg IV. He is being admitted for hypertensive urgency. Addendum - reeveal at 2335, BP 178/114 with MAP 135. Will start nicardipine drip with goal to reduce MAP by 25%, goal BP less than 160/90 or MAP 100. #HTN urgency - symptomatic with head pressure. Head CT and CXR negative for acute changes. Renal function stable. Possibly 2/2 phentermine reaction however has not taken in 2 days. Pressures equal in both arms. - UA and UDS ordered - patient recently started phentermine - will hold - ordered clonidine 0.1 Mg p.o. and Ativan 0.5 Mg IV - If fails to improve blood pressure, patient will be started on nicardipine drip - If pressures become controlled and patient still has persistent headache, consider MRI/MRV - Will defer renal ultrasound at this time, however could consider if HTN persistent #hypokalemia K+ 3.3, other electrolytes stable. Renal function WNL. Possibly 2/2 hypovolemia/mild dehydration. 40 mEq KCl P.o. ordered - promote oral hydration Trend BMP #transaminitis mild Trend CMP #BPH continue finasteride and tamsulosin - also has not taken in 2 days - rebound effect remains on differential #ADHD - recently d/c concerta 2 months ago, stable VTE ppx: SCDs, low risk Dispo: PCU Admission and Anticipated Discharge Date Admission Date: 11/26/24 History of Present Illness Chief Complaint: htn Primary Care Provider: Hernandez Davis DO Patient is a 59-year-old male with past medical history of ADHD and BPH who presented due to persistent hypertension and head pressure. Patient's pressure noted to be as high as 220/146 in ED, decreased to 187/115 after labetalol 5 Mg IV and hydralazine 10 Mg IV. He is being admitted for hypertensive urgency. Patient seen at bedside. He is a cardiology drug rep. Patient stated that he went to his PCP on who noted his blood pressure to be 140/110, so they made a 1 month follow-up to reassess his blood pressure. He stated his baseline pressure is typically 130-136/100 due to being on ADHD medication. Patient stated that when he was grocery shopping this morning he noted that he had some head pressure so he took his blood pressure which was 183/112. He then took 325 Mg p.o. aspirin. Patient then bought a home blood pressure cuff and noted his pressure to be 200/115 and again 1 hour later 222/136. he used his watch to check an EKG which he said was normal. He did not take any of his home medications today. He did note that he has been off Concentra for approximately 2 months and on phentermine; his goal is to transition back to Concentra eventually. He recently said he started tamsulosin and finasteride. He does not have a history of high blood pressure and takes no blood pressure medications at home. Patient stated that he believes it was just today that he has had pressure which has been worsening since he has been in the ED. 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 Patient also endorses feeling like his heartbeat is poun ding, however denies any chest pain or pressure. He denies any shortness of breath, abdominal pain, nausea, vomiting, diarrhea. Patient stated he may be somewhat dehydrated as he does not drink much water. Patient denies any nicotine or illicit drug use. He occasionally drinks alcohol, he did have 1 vodka mixed drink today as he thought it would help him relax and lower his blood pressure. He does not use oxygen at baseline. He wishes to be full code. Patient's eyes are bloodshot at bedside, however no papilledema noted. Regarding mild transaminitis, patient denies any Tylenol use recently. patient stated that his is in [place] currently, he has 2 sons that are 21 and 17 that are in the area if there is any emergency. His primary contact is his , Daksha. Allergies Allergy/AdvReac Type Severity Reaction Status Date / Time Penicillins Allergy Unknown unknown Verified 11/10/17 07:54 succinylcholine Allergy Unknown SEE Verified 11/10/17 07:54 COMMENTS BELOW Home Medications Medication Instructions Recorded Confirmed Type cetirizine 10 mg tablet (Zyrtec) 10 mg PO DAILY PRN Allergy Symptoms 11/26/24 11/26/24 History finasteride 5 mg tablet 5 mg PO DAILY 11/26/24 11/26/24 History phentermine 37.5 mg tablet 37.5 mg PO DAILY 11/26/24 11/26/24 History tamsulosin 0.4 mg capsule 0.4 mg PO BID 11/26/24 11/26/24 History Past Med/Surg History Problem List (Updated 11/26/24 @ 23:15 by Aj Haji, DO) BPH (benign prostatic hyperplasia) Transaminitis Hypokalemia Hypertensive urgency (Acute) Cholecystitis, acute with cholelithiasis Social History Smoking Status: Never smoker Hx Alcohol Use: Yes Alcohol type: hard liquor Hx Substance Use: No Preferred Language: Amharic Communication Ability: Effective Slubber Runner Required: No Beliefs That Will Affect Care: None Current Living Situation: Spouse and Family Other Information That Helps Us Care for You: No Feels Safe at Home: Yes Safety Concerns: Feels Safe At This Time Assistive Devices: None Review of Systems Review of Systems: see HPI Physical Exam Physical Exam: The patient is awake, alert and oriented 3, well developed and well nourished, normocephalic and atraumatic, in no acute distress. Non-toxic appearing. HEENT- EOMI, mucous membranes moist. Hearing grossly intact. Eyes are bloodshot, no papilledema noted. Heart-normal S1 and S2. No murmurs, rubs or gallops. Lungs-clear bilaterally, no respiratory distress, no accessory muscle use. Abdomen-normal bowel sounds and soft. No ascites noted. Non-tender. Extremities- no clubbing, cyanosis, or edema. Rheumatologic-normal range of motion. Psychiatric-normal affect. Results & Data Results & Data Vital Signs (Past 12 Hours) Vital Signs Temp Pulse Pulse Resp BP BP Pulse Ox 11/26/24 21:00 90 16 187/115 H 96 11/26/24 19:58 87 184/123 H 11/26/24 19:29 79 197/126 H 11/26/24 19:14 88 220/146 H 11/26/24 19:10 79 16 220/146 H 96 11/26/24 19:10 11/26/24 19:02 94 H 11/26/24 18:57 36.6 C 101 H 17 197/121 H 96 O2 Del Method 11/26/24 21:00 Room Air 11/26/24 19:58 11/26/24 19:29 11/26/24 19:14 11/26/24 19:10 Room Air 11/26/24 19:10 Room Air 11/26/24 19:02 11/26/24 18:57 Room Air Laboratory Results Reviewed CBC, CMP, magnesium, troponin, TSH Diagnostic Findings reviewed head CT and CXR Medications Administered EDZofran 4 Mg IV, morphine 4 Mg IV, hydralazine 10 Mg IV, labetalol 12 5 Mg IV Admissionclonidine 0.1 Mg p.o., Ativan 0.5 Mg IV Code Status & VTE Plan Code Status full VTE Prophylaxis Plan VTE Prophylaxis will be ordered: Yes Supervising Physician Co-Signing Physician Notes patient seen and examined, chart reviewed, case discussed with ANDRADE Pizarro and I agree with the assessment plan as document above. In brief, patient is a 59-year-old male presenting with markedly elevated blood pressure as well as severe headache. Patient's blood pressure has been markedly elevated over the last several days. This is fairly new for him. Prior to this his blood pressure would occasionally be in the 130s but he has never had numbers that he was receiving recently. Given labetalol 5 mg IV, hydralazine 10 mg IV, clonidine 0.1 mg p.o. in the ER with persistently elevated blood pressures. Ultimately started on nicardipine drip. Patient denies chest pain, palpitations, back pain, nausea, dizziness, visual disturbance, numbness/tingling/weakness On physical exam patient is afebrile, markedly hypertensive. Reports that his headache is very mild at this point 10/12. Skinwarm, dry, intact, no rashes HEENTmucous membranes moist, neck supple, no JVD, no carotid bruits Heart+ S1, S2, regular, no murmur/rub/gallop LungsCTA, no rales/rhonchi/wheezes Abdomenpositive bowel sounds, soft, nontender, nondistended, no appreciable bruits with auscultation over the renal arteries Extremitieswarm, well-perfused, no clubbing/cyanosis/edema Ophthalmoscopic exam performed by Erickorts no papilledema Blood pressures largely equivalent in right upper and left upper extremities (187/126 and a right upper extremity and 186/100 and left upper extremity) Etiology unclear. Patient has been on phentermine for weight loss but reports he has not taken this over the last 2 days. He denies stimulant use, OTC medications. Admit to PCU Hold phentermine Nicardipine drip. Goal to decrease by 25% of the MAP overnight then slow d ecrease to normal blood pressure over the next day Remainder as above PG Care Time/CCT Total # of Minutes Spent Total Time Spent with Patient: Total time spent is greater than 50% in coordination of care (as documented) at patient's floor/unit and/or counseling patient: Coding Level of Care Code 55372 INT INP/OBS CARE 3/75MIN Diagnoses Hypertensive urgency I16.0 Hypokalemia E87.6 Transaminitis R74.01 BPH (benign prostatic hyperplasia) N40.0
[2024-11-26 23:21] LABS: Appearance Urine Clear (Clear); Bilirubin Urine Negative (Negative); Blood Urine Negative (Negative); Color Urine Yellow; Glucose Urine UA Negative (Negative); Ketones Urine Negative (Negative); Leukocyte Esterase Urine Negative (Negative); Nitrite Urine Negative (Negative); Protein Urine Negative (Negative); Urobilinogen Urine Negative (Negative); pH Urine 7.5 (4.5-7.5)
[2024-11-27 00:17] LABS: Amphetamines+Metham, Urine Neg (Neg); Barbiturates, Urine Neg (Neg); Benzodiazepine, Urine Neg (Neg); Cocaine, Urine Neg (Neg); Fentanyl, Urine Neg (Neg); MDMA (Ecstacy), Urine Neg (Neg); Marijuana, Urine Neg (Neg); Methadone, Urine Neg (Neg); Opiate, Urine Pos (Neg); Phencyclidine, Urine Neg (Neg)
[2024-11-27 03:22] VITALS: TEMP 98.2
[2024-11-27 06:38] LABS: Basophils # (auto) 0.07 K/uL (0.00-0.20); Basophils % (auto) 0.9 %; Eosinophils # (auto) 0.37 K/uL (0.00-0.50); Eosinophils % (auto) 4.7 %; Hematocrit (blood only) 44.1 % (42.0-52.0); Hemoglobin 15.5 g/dl (14.0-18.0); Immature Granulocytes # (auto) 0.05 K/uL (0.01-0.20); Immature Granulocytes % (auto) 0.6 %; Lymphocytes # (auto) 1.73 K/uL (1.20-3.40); Lymphocytes % (auto) 21.8 %; Mean Corpuscular Hgb Conc 35.1 g/dL (32.0-36.0); Mean Corpuscular Volume 93.8 fL (80.0-100.0); Mean Platelet Volume 9.4 fL (9.4-12.4); Monocytes # (auto) 0.73 K/uL (0.11-0.59); Monocytes % (auto) 9.2 %; Neutrophils # (auto) 4.98 K/uL (1.40-6.50); Neutrophils % (auto) 62.8 %; Platelet Count 200 K/uL (130-400); RDW Coefficient of Variation 12.2 % (11.5-14.5); RDW Standard Deviation 42.3 fL (36.4-46.3); White Blood Count 7.93 K/ul (4.8-10.8)
[2024-11-27 07:04] LABS: Albumin Globulin Ratio 1.2 (0.9-2); Albumin Level 3.7 gm/dl (3.4-5.0); BUN Creatinine Ratio 10.1 (10-20); Bilirubin,Total 0.7 mg/dl (0.2-1.0); Calcium 8.7 mg/dl (8.6-10.3); Creatinine Clr Calc Pharmacy 85.4 ml/min; Globulin 3.1 gm/dl (2.5-4.0); Potassium 3.6 mmol/L (3.5-5.1); Total Protein 6.8 gm/dl (6.0-8.3)
--- NOTE | 2024-11-27 07:31 | Hospitalist Progress Note ---
Date of Service November 27, 2024 Assessment & Plan (1) Hypertensive urgency: (2) Hypokalemia: (3) Transaminitis: (4) BPH (benign prostatic hyperplasia): Plan Patient is a 59-year-old male with past medical history of ADHD and BPH who presented due to persistent hypertension and head pressure. Patient's pressure noted to be as high as 220/146 in ED, decreased to 187/115 after labetalol 5 Mg IV and hydralazine 10 Mg IV. He is being admitted for hypertensive urgency. Addendum - reeveal at 2335, BP 178/114 with MAP 135. Will start nicardipine drip with goal to reduce MAP by 25%, goal BP less than 160/90 or MAP 100. #HTN urgency - symptomatic with head pressure. Head CT and CXR negative for acute changes. Renal function stable. Possibly 2/2 phentermine reaction however has not taken in 2 days. Pressures equal in both arms. - UA and UDS ordered - patient recently started phentermine - will hold - ordered clonidine 0.1 Mg p.o. and Ativan 0.5 Mg IV - If fails to improve blood pressure, patient will be started on nicardipine drip - If pressures become controlled and patient still has persistent headache, consider MRI/MRV - Will defer renal ultrasound at this time, however could consider if HTN persistent #hypokalemia K+ 3.3, other electrolytes stable. Renal function WNL. Possibly 2/2 hypovolemia/mild dehydration. 40 mEq KCl P.o. ordered - promote oral hydration Trend BMP #transaminitis mild Trend CMP #BPH continue finasteride and tamsulosin - also has not taken in 2 days - rebound effect remains on differential #ADHD - recently d/c concerta 2 months ago, stable VTE ppx: SCDs, low risk Dispo: PCU Admission and Anticipated Discharge Date Admission Date: November 26, 2024 Review of Systems Review of Systems: As per HPI. Results & Data Results & Data Vital Signs (Past 12 Hours) Vital Signs Temp Pulse Pulse Resp BP Pulse Ox O2 Del Method 11/27/24 05:47 121/84 11/27/24 04:30 140/92 11/27/24 03:46 131/76 11/27/24 03:32 82 122/73 11/27/24 03:05 36.8 C 91 H 17 95/71 L 94 Room Air 11/27/24 02:32 131/82 11/27/24 02:09 82 165/76 H 11/27/24 01:40 87 124/75 11/27/24 01:12 82 145/92 H 11/27/24 00:43 173/95 H 11/27/24 00:37 81 11/27/24 00:28 36.7 C 81 16 178/109 H 98 Room Air 11/26/24 23:46 79 18 167/108 H 96 Room Air 11/26/24 22:59 102 H 22 200/121 H 97 Room Air 11/26/24 21:00 90 16 187/115 H 96 Room Air 11/26/24 19:58 87 184/123 H
[2024-11-27 11:57] VITALS: RESP 20; O2SAT 97
--- NOTE | 2024-11-27 15:28 | Discharge Summary ---
Date of Service November 27, 2024 Admission HPI Per Admitting Provider Patient is a 59-year-old male with past medical history of ADHD and BPH who presented due to persistent hypertension and head pressure. Patient's pressure noted to be as high as 220/146 in ED, decreased to 187/115 after labetalol 5 Mg IV and hydralazine 10 Mg IV. He is being admitted for hypertensive urgency. Patient seen at bedside. He is a cardiology drug rep. Patient stated that he went to his PCP on who noted his blood pressure to be 140/110, so they made a 1 month follow-up to reassess his blood pressure. He stated his baseline pressure is typically 130-136/100 due to being on ADHD medication. Patient stated that when he was grocery shopping this morning he noted that he had some head pressure so he took his blood pressure which was 183/112. He then took 325 Mg p.o. aspirin. Patient then bought a home blood pressure cuff and noted his pressure to be 200/115 and again 1 hour later 222/136. he used his watch to check an EKG which he said was normal. He did not take any of his home medications today. He did note that he has been off Concentra for approximately 2 months and on phentermine; his goal is to transition back to Concentra eventually. He recently said he started tamsulosin and finasteride. He does not have a history of high blood pressure and takes no blood pressure medications at home. Patient stated that he believes it was just today that he has had pressure which has been worsening since he has been in the ED. 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 Patient also endorses feeling like his heartbeat is pounding, however denies any chest pain or pressure. He denies any shortness of breath, abdominal pain, nausea, vomiting, diarrhea. Patient stated he may be somewhat dehydrated as he does not drink much water. Patient denies any nicotine or illicit drug use. He occasionally drinks alcohol, he did have 1 vodka mixed drink today as he thought it would help him relax and lower his blood pressure. He does not use oxygen at baseline. He wishes to be full code. Patient's eyes are bloodshot at bedside, however no papilledema noted. Regarding mild transaminitis, patient denies any Tylenol use recently. patient stated that his is in [place] currently, he has 2 sons that are 21 and 17 that are in the area if there is any emergency. His primary contact is his , [place]sha. Admission Exam Per Admitting Provider The patient is awake, alert and oriented 3, well developed and well nourished, normocephalic and atraumatic, in no acute distress. Non-toxic appearing. HEENT- EOMI, mucous membranes moist. Hearing grossly intact. Eyes are bloodshot, no papilledema noted. Heart-normal S1 and S2. No murmurs, rubs or gallops. Lungs-clear bilaterally, no respiratory distress, no accessory muscle use. Abdomen-normal bowel sounds and soft. No ascites noted. Non-tender. Extremities- no clubbing, cyanosis, or edema. Rheumatologic-normal range of motion. Psychiatric-normal affect. Principal Diagnosis HTN Discharge Exam Gen: NAD, WD/WN HEENT: NCAT, MMM, nl conjunctiva CV: RRR, no m/r/g, S1/S2 normal Resp: CTAB, symmetrical chest rise, breathing non-labored Abd: Soft, NT/ND, +BS MSK: Full ROM, normal str, normal visual inspection Skin: Warm, dry, pink, no rashes or lesions Neuro: AOx3, EOMI, PERRL, no facial droop, normal phonation, SILT in face and extremities Psych: Mood-affect congruent. Speech pace and content normal. Discharge Data Allergies Allergy/AdvReac Type Severity Reaction Status Date / Time Penicillins Allergy Unknown unknown Verified 11/10/17 07:54 succinylcholine Allergy Unknown SEE Verified 11/10/17 07:54 COMMENTS BELOW Consultations 11/26/24 21:54 ED Decision to Admit Stat Ordered Studies 11/26/24 19:17 CT head/brain wo con Stat Hospital Course (1) Hypertensive urgency: (2) Hypokalemia: (3) Transaminitis: (4) BPH (benign prostatic hyperplasia): Plan Patient is a 59-year-old male with past medical history of ADHD and BPH who presented due to persistent hypertension and head pressure. Patient's pressure noted to be as high as 220/146 in ED, decreased to 187/115 after administration of IV labetalol and hydralazine, and a nicardipine drip. He was admitted for hypertensive urgency. He was deemed safe for discharge once an oral antihypertensive regimen was established and his blood pressure readings improved. #HTN urgency - Pt denies h/o elevated blood pressure. Says 140 systolic reading at PCP appt this week was out of the ordinary. Since then, he's checked BP at home or pharmacies, with progressively higher readings. Came to hospital due to sx of head pressure and multiple readings in the 220s/130s. - Head CT and CXR negative for acute changes. Labs unremarkable, with normal renal function. CXR without cardiopulmonary abnormality. EKG normal. UA negative; UDS done after pt given morphine in the ED - Phentermine reaction was considered as a causative/exacerbating factor; however, pt has been on it for a few months & he did not take it over the weekend (for 2 days) - BP improved after 5 Mg IV, hydralazine 10 Mg IV, and cardine drip. - Pt given 1 dose ARB (50mg losartan) and discharged with 20mg daily olmesartan. Also instructed to check BP daily #Hypokalemia resolved - Initial K+ 3.3. Other electrolytes stable. Renal function WNL. - Likely 2/2 hypovolemia/mild dehydration. Pt given 500ml nss and 40 mEq KCl - Repeat K+ this AM 3.6 #Transaminitis mild Initial AST of 43 and ALT of 79 --> repeat AST 35 and ALT 64 Pt asymptomatic with no risk factors. Can confirm return to normal range but no apparent need for tx. #BPH continue finasteride and tamsulosin pt reports not taking any meds over the weekend; also has not taken these in 2 days #ADHD - stable; stopped concerta 2 months ago Total Time Total Time Spent Total Time Spent (In Minutes): See attending documentation Discharge Plan Discharge Items Patient Disposition: Home - Self-Care Reason For Visit: HTN URGENCY Discharge Diagnosis: HTN Condition on Discharge: Fair Activity: Per Instructions section Non-emergency contact: Primary Care Provider Call non-emergency contact if: you have any medication questions and your symptoms worsen Follow-up/Referrals: Hernandez Davis DO [Primary Care Provider] - Diet: Regular Addtl Attending Provider Instructions: You came to the hospital with headache and extremely high blood pressure, and you were admitted for hypertensive urgency. You were treated with IV antihypertensives and tests were done to rule out any neurologic or cardiologic concerns. You were deemed safe for discharge when your blood pressure was impro ving with oral medication. You will need to take this new medication and also check your blood pressure every day. Medications Your medication list has been reviewed and reconciled. An updated list is included with your discharge paperwork; please review this list closely and make note of any changes. As discussed, do not continue taking the phentermine We sent a prescription for Benicar (olmesartan) to your pharmacy. Take 1 olmesartan 20mg tablet daily. Follow-up appointments: Make a follow-up appointment with your PCP within the next week. It is very important that you follow up with them shortly after discharge from the hospital. They can determine if adjustments are needed to your medication. Keep all your follow-up appointments as already scheduled. If you cannot make an appointment, notify your provider. Please bring a copy of this discharge summary with you to your next office appointment so that your provider can review it at that time and stay updated on your hospitalization and potential changes in your care. Contact your PCP if your symptoms return or worsen. Call 911 or go to the ER if you experience any of the following: Sudden, severe abdominal pain or nausea/vomiting Severe chest pain, or chest pain that radiates (moves) to your jaw or arm Sudden, severe shortness of breath or difficulty breathing Thank you for allowing us to participate in your care. Pending Studies at Discharge: No Stand-Alone Forms: My [facility], Smoking Cessation Medications and DC Order Prescriptions: New olmesartan 20 mg tablet 20 mg PO DAILY Qty: 30 0RF Continued cetirizine [Zyrtec] 10 mg Tablet 10 mg PO DAILY PRN (Reason: Allergy Symptoms) tamsulosin 0.4 mg capsule 0.4 mg PO BID finasteride 5 mg tablet 5 mg PO DAILY Discontinued phentermine 37.5 mg tablet 37.5 mg PO DAILY Discharge Orders: Discharge Order (Routine); Ordered 11/27/24 Ordered By: Elmira Hargrove Admission Data Admit Date/Time: 11/26/24 23:17 Attending Provider: Keyur Frye Admit Provider: Isabel Blair Primary Care Provider: Hernandez Davis Other Providers: Isabel Blair Supervising Physician Co-Signing Physician Notes Attending attestation Pt seen and examined in concert with Dr. Hargrove. In agreement with the documented findings as noted in the resident documentation with any exceptions or additions as noted here. At time of examination, patient without any complaints and doing well off nicardipine drip. Tolerated losartan 50mg without adverse effect. VS as noted, S1/S2 nl RRR no MCG. CTAB. Abd NT/ND BS+ve Hypertensive urgency - olmesartan 20mg with home BP monitoring, short term follow up and uptitration. Consider addition of amlodipine instead of escalation with ongoing poor control. May benefit from secondary hypertension evaluation based on response. Else see resident documentation as noted. Total attending physician time spent with this patient's care on the day of discharge: 35 minutes. Resident Activity Tracking Resident Involvement: Resident Care Provided Care Provided: Adult Hospital Medicine
[2024-11-27 16:00] VITALS: BP 154/103; PULSE 72
--- NOTE | 2024-11-28 07:37 | Electrocardiogram Report ---
Test Reason : Blood Pressure : */* mmHG Vent. Rate : 94 BPM Atrial Rate : 94 BPM P-R Int : 138 ms QRS Dur : 82 ms QT Int : 374 ms P-R-T Axes : 73 36 40 degrees QTcB Int : 467 ms Normal sinus rhythm Normal ECG When compared with ECG of 22-Jun-2016 04:19, Vent. rate has increased by 38 bpm Confirmed by Cyndy Mari (Haily) on 11/28/2024 7:36:53 AM Referred By: REFERRED SELF Confirmed By: Cyndy Mari
[2024-12-01 15:27] LABS: Codeine Urine NEGATIVE ng/mL (<50); Hydrocodone Urine NEGATIVE ng/mL (<50); Hydromor Urine NEGATIVE ng/mL (<50); Morphine Urine 787 ng/mL (<50); Norhydrocodone Conf Ur NEGATIVE ng/mL (<50); Noroxycodone Urine NEGATIVE ng/mL (<50); Oxycodone Urine NEGATIVE ng/mL (<50); Oxymorph Urine NEGATIVE ng/mL (<50)
== END 2024-11-27 16:15 | disposition home or self-care (01) ==
LOC: ED 18:49 → SUATTDRO 23:17 → 2E 23:17